=== PATIENT | female | born 1955 | race Caucasian/White ===

== ENCOUNTER → 2018-08-22 | Outpatient (CLI) | payer OTHER ==
--- NOTE | 2018-08-22 15:27 | RAD ---
Left lower extremity venous doppler ultrasound Indication: Left leg edema Technique: Color Doppler, grayscale, and spectral waveform analysis is used to evaluate the left femoral and popliteal veins. Findings: No evidence of deep venous thrombosis. Normal response to augmentation, normal compressibility and normal phasicity is demonstrated. Visualized calf veins are patent. Impression: Negative for deep venous thrombosis Electronically signed by: Alton Rojas MD (08/22/2018 3:24 PM) [id number]
== END | disposition home or self-care (01) ==
LOC: US 14:35 → MERGE 14:35
PROVIDERS: ATTEND Registered Nurse
DX: R60.0 Localized edema (principal); R20.2 Paresthesia of skin; R20.0 Anesthesia of skin
CPT/HCPCS: 93971

== ENCOUNTER → 2018-08-27 | Outpatient (CLI) | payer OTHER ==
[~2018-08-27] MED LIST: IOHEXOL 300 MG/ML 75 ML VIAL. IV ONE
--- NOTE | 2018-08-27 15:59 | RAD ---
PQRS Compliance statement: One or more of the following individualized dose reduction techniques were utilized for this examination: 1. Automated exposure control. 2. Adjustment of the mA and/or kV according to patient size. 3. Use of iterative reconstruction technique. Indication:Elevated d-dimer. Bilateral exiting. TECHNIQUE: CT angiogram of the chest with IV contrast with multiplanar MIP reformats. COMPARISON:None FINDINGS: Suboptimal PE study due to contrast bolus timing. No large saddle embolus. Evaluation of segmental and subsegmental pulmonary arteries is limited. Clear neck base. Heart is normal in size. No pericardial or pleural effusion. Coronary artery calcifications. No enlarged axillary, mediastinal or hilar adenopathy. Central airways are patent. Mild bibasilar subsegmental atelectasis. Visualized sections through the liver, spleen, adrenals, kidneys within normal limits. No suspicious bony lesion. IMPRESSION: Suboptimal PE study due to contrast bolus timing. No saddle embolus. Evaluation of segmental and subsegmental pulmonary arteries is limited. Consider further evaluation with DVT exam and VQ scan. Electronically signed by: Jose Alfredo Barrow DO (08/27/2018 3:57 PM) [facility]
== END | disposition home or self-care (01) ==
LOC: CT 14:01
PROVIDERS: ATTEND Family Medicine
DX: I25.10 Atherosclerotic heart disease of native coronary artery without angina pectoris (principal); J98.11 Atelectasis; Z91.030 Bee allergy status; Z87.891 Personal history of nicotine dependence
CPT/HCPCS: 71275; Q9967

== ENCOUNTER → 2018-10-16 | Outpatient (CLI) | payer OTHER ==
--- NOTE | 2018-10-16 10:44 | RAD ---
PQRS Compliance Statement: One or more of the following individualized dose reduction techniques were utilized for this examination: 1. Automated exposure control 2. Adjustment of the mA and/or kV according to patient size 3. Use of iterative reconstruction technique CT abdomen/pelvis without contrast 10/16/2018 10:30 AM INDICATION: Right flank pain for one week COMPARISON: CT abdomen/pelvis 04/30/2009 TECHNIQUE: Multiple axial CT images of the abdomen and pelvis were obtained without intravenous contrast. Coronal and sagittal reformats are provided. FINDINGS: There is bibasilar subsegmental atelectasis. Heart size is within normal limits. Evaluation of the solid abdominal viscera is limited by lack of intravenous contrast. There is diffuse hypoattenuation of the hepatic parenchyma suggestive of hepatic steatosis. Mild hepatomegaly. Spleen, bilateral adrenal glands and pancreas are normal in appearance. Gallbladder is surgically absent. Abdominal aorta is normal in course and caliber with moderate calcified atheromatous plaque. There are no pathologically enlarged lymph nodes in abdomen and pelvis. Surgical clips are noted within the pelvis. Tubal ligation clips are present. No free fluid or free intraperitoneal air. There is moderate colonic diverticulosis. No adjacent inflammatory changes identified. Small and large bowel are normal in caliber. There is no evidence for bowel obstruction. There are no pericolonic inflammatory changes. Appendix is not definitively visualized. No pericecal inflammatory changes are identified. The kidneys are relatively symmetric in appearance. There is no suspicious renal mass within the limitations of a noncontrast examination. There is no hydronephrosis. There are no calculi within the kidneys, ureters or urinary bladder. Urinary bladder is within normal limits given degree of distention. Uterus is normal. There is a tubal ligation clip identified within the rectouterine pouch. No suspicious osseous abnormality. Osseous hemangiomas are identified at L3 and L5. IMPRESSION: 1. No evidence for obstructive uropathy. No hydronephrosis or renal calculi. 2. Appendix is not definitively visualized. No pericecal inflammatory changes are present. No bowel obstruction or inflammation. 3. Moderate diverticulosis. 4. Moderate hepatic steatosis with hepatomegaly. Electronically signed by: Janette Baker MD (10/16/2018 10:41 AM) [facility]
== END | disposition home or self-care (01) ==
LOC: CT 10:06
PROVIDERS: ATTEND Registered Nurse
DX: K57.30 Diverticulosis of large intestine without perforation or abscess without bleeding (principal); K76.0 Fatty (change of) liver, not elsewhere classified; R16.0 Hepatomegaly, not elsewhere classified; D18.09 Hemangioma of other sites; J98.11 Atelectasis
CPT/HCPCS: 74176

== ENCOUNTER 2019-02-13 07:52 | Emergency (ER) | payer OTHER ==
[~2019-02-13] VITALS: Ht 162.6 cm; Wt 114.0 kg
[2019-02-13 08:59] LABS: BASO # 0.1 x10^3/uL (0.0-0.2); BASO % 1 % (0-3); EOS # 1.4 x10^3/uL (0.0-0.7); EOS % 9 % (0-3); HEMATOCRIT 49.5 % (36.0-47.0); HEMOGLOBIN 16.8 g/dL (12.0-15.5); LYMPH # 0.4 x10^3/uL (1.0-4.8); LYMPH % 2 % (24-48); MEAN CORPUSCULAR HEMOGLOBIN 31 pg (25-35); MEAN CORPUSCULAR HGB CONC 34 g/dL (31-37); MEAN CORPUSCULAR VOLUME 90 fL (79-100); MONO # 0.7 x10^3/uL (0.0-1.1); MONO % 4 % (0-9); NEUT # 13.9 x10^3uL (1.8-7.7); NEUT % 84 % (31-73); PLATELET COUNT 268 x10^3/uL (140-400); RED BLOOD COUNT 5.49 x10^6/uL (3.50-5.40); RED CELL DISTRIBUTION WIDTH 12.9 % (11.5-14.5); WHITE BLOOD COUNT 16.5 x10^3/uL (4.0-11.0)
[2019-02-13 09:09] LABS: CALCIUM 9.4 mg/dL (8.5-10.1); CREATININE 0.8 mg/dL (0.6-1.0); GFR 72.7; POTASSIUM 4.4 mmol/L (3.5-5.1)
[2019-02-13 09:16] LABS: ALBUMIN/GLOBULIN RATIO 1.1 (1.0-1.7); TOTAL BILIRUBIN 0.7 mg/dL (0.2-1.0); TOTAL PROTEIN 7.6 g/dL (6.4-8.2)
[2019-02-13 09:23] LABS: % BANDS 6 % (0-9); % EOS 3 % (0-5); % LYMPHS 3 % (24-48); % MONOS 6 % (0-10); % SEGS 82 % (35-66); PLT ESTIMATE ADEQUATE (ADEQUATE)
[2019-02-13] MEDS ORDERED: IV NORMAL SALINE 1,000ML 1,000 ML IV ONE ×2 (09:45→11:00)
[2019-02-13] MEDS ORDERED: ONDANSETRON PF 4 MG/2 ML VIAL. IVP ONE (09:45)
--- NOTE | 2019-02-13 09:52 | PHYS DOC ---
Past History Past Medical History: Endometriosis, Kidney Stones Past Surgical History: Appendectomy, Cholecystectomy, Tubal ligation, Other Additional Past Surgical Histo: kidney stone removed Alcohol Use: None Drug Use: None Adult General Chief Complaint Chief Complaint: ABDOMINAL PAIN HPI HPI Patient is a 63-year-old female who presents to ER today for evaluation of nausea, vomiting, diarrhea, epigastric abdominal pain since 12:30 AM this morning. Patient denies any fever. Patient says she was on antibiotics for upper respiratory infection 4 weeks ago. She IS not ON ANY BLOOD thinner, denies any blood in her stool, denies any history of coronary artery disease. Patient denies any headache. Patient denies any chest pain, no trouble breathing. aLL OTHER ros IS NEGATIVE UNLESS OTHERWISE NOTED IN hpi Review of Systems Review of Systems See above Current Medications Current Medications Current Medications Medications (Trade) Dose Ordered Sig/Alex Start Time Stop Time Status Last Admin Dose Admin Iohexol (Omnipaque 300 Mg/ml) 75 ml 1X ONCE 02/13/19 10:00 02/13/19 10:01 Metronidazole 100 ml @ 100 mls/hr 1X ONCE 02/13/19 10:00 02/13/19 10:59 Morphine Sulfate (Morphine 4mg Syringe) 4 mg 1X ONCE 02/13/19 10:00 02/13/19 10:01 Ondansetron HCl (Zofran) 8 mg 1X ONCE 02/13/19 09:45 02/13/19 09:46 DC Sodium Chloride 1,000 ml @ 1,000 mls/hr 1X ONCE 02/13/19 09:45 02/13/19 10:44 Allergies Allergies Allergies Coded Allergies Type Severity Reaction Last Updated Verified bee venom protein (honey bee) Allergy Unknown 02/13/19 Yes Physical Exam Physical Exam See above Constitutional: Well developed, well nourished, no acute distress, non-toxic appearance. [] HENT: Normocephalic, atraumatic, bilateral external ears normal, oropharynx moist, no oral exudates, nose normal. [] Eyes: PERRLA, EOMI, conjunctiva normal, no discharge. [] Neck: Normal range of motion, no tenderness, supple, no stridor. [] Cardiovascular:Heart rate regular rhythm, no murmur [] Lungs & Thorax: Bilateral breath sounds clear to auscultation [] Abdomen: Bowel sounds normal, soft, There is tenderness to palpation in epigastric area, no masses, no pulsatile masses. [] Skin: Warm, dry, no erythema, no rash. [] Back: No tenderness, no CVA tenderness. [] Extremities: No tenderness, no cyanosis, no clubbing, ROM intact, no edema. [] Neurologic: Alert and oriented X 3, normal motor function, normal sensory function, no focal deficits noted. [] Psychologic: Affect normal, judgement normal, mood normal. [] Current Patient Data Vital Signs Vital Signs Date Time Temp Pulse Resp B/P (MAP) Pulse Ox O2 Delivery O2 Flow Rate FiO2 02/13/19 07:52 98.9 105 20 92 Room Air Lab Results Laboratory Tests Test 02/13/19 08:45 White Blood Count 16.5 x10^3/uL (4.0-11.0) H Red Blood Count 5.49 x10^6/uL (3.50-5.40) H Hemoglobin 16.8 g/dL (12.0-15.5) H Hematocrit 49.5 % (36.0-47.0) H Mean Corpuscular Volume 90 fL (79-100) Mean Corpuscular Hemoglobin 31 pg (25-35) Mean Corpuscular Hemoglobin Concent 34 g/dL (31-37) Red Cell Distribution Width 12.9 % (11.5-14.5) Platelet Count 268 x10^3/uL (140-400) Neutrophils (%) (Auto) 84 % (31-73) H Lymphocytes (%) (Auto) 2 % (24-48) L Monocytes (%) (Auto) 4 % (0-9) Eosinophils (%) (Auto) 9 % (0-3) H Basophils (%) (Auto) 1 % (0-3) Neutrophils # (Auto) 13.9 x10^3uL (1.8-7.7) H Lymphocytes # (Auto) 0.4 x10^3/uL (1.0-4.8) L Monocytes # (Auto) 0.7 x10^3/uL (0.0-1.1) Eosinophils # (Auto) 1.4 x10^3/uL (0.0-0.7) H Basophils # (Auto) 0.1 x10^3/uL (0.0-0.2) Segmented Neutrophils % 82 % (35-66) H Band Neutrophils % 6 % (0-9) Lymphocytes % 3 % (24-48) L Monocytes % 6 % (0-10) Eosinophils % 3 % (0-5) Platelet Estimate Adequate (ADEQUATE) Large Platelets Occ Sodium Level 139 mmol/L (136-145) Potassium Level 4.4 mmol/L (3.5-5.1) Chloride Level 103 mmol/L (98-107) Carbon Dioxide Level 25 mmol/L (21-32) Anion Gap 11 (6-14) Blood Urea Nitrogen 19 mg/dL (7-20) Creatinine 0.8 mg/dL (0.6-1.0) Estimated GFR (Cockcroft-Gault) 72.7 BUN/Creatinine Ratio 24 (6-20) H Glucose Level 166 mg/dL (70-99) H Calcium Level 9.4 mg/dL (8.5-10.1) Total Bilirubin 0.7 mg/dL (0.2-1.0) Aspartate Amino Transferase (AST) 38 U/L (15-37) H Alanine Aminotransferase (ALT) 81 U/L (14-59) H Alkaline Phosphatase 103 U/L (46-116) Total Protein 7.6 g/dL (6.4-8.2) Albumin 4.0 g/dL (3.4-5.0) Albumin/Globulin Ratio 1.1 (1.0-1.7) Lipase 176 U/L (73-393) EKG EKG [] Radiology/Procedures Radiology/Procedures [][address] [address] IMAGING REPORT Signed PATIENT: TASHA WEAVER LACCOUNT: [id number] : 1955 LOCATION: ER AGE: 63 SEX: F EXAM STATUS: REG ER ORD. PHYSICIAN: KRISS GLOVER DO REASON: abdominal pain, nausea, vomiting PROCEDURE: CT ABD PELV W/ IV CONTRST ONLY Examination: CT of the abdomen pelvis with IV contrast HISTORY: History of abdominal pain, nausea, vomiting COMPARISON: None available TECHNIQUE: Axial CT images of the abdomen pelvis were performed with IV contrast. Coronal and sagittal reformats are performed. Exposure: One or more of the following individualized dose reduction techniques were utilized for this examination: 1. Automated exposure control 2. Adjustment of the mA and/or kV according to patient size 3. Use of iterative reconstruction technique FINDINGS: Minimal bibasilar lung atelectasis. There is a 6 mm nodule identified in the left lower lobe of the lung. No evidence of free air identified in the abdomen. Diffuse decreased attenuation noted in the liver likely hepatic steatosis. Hepatomegaly. The spleen, adrenals grossly appears unremarkable. Cholecystectomy clips identified. The stomach is mildly distended. The visualized pancreas grossly appears unremarkable. Small bowel is nondilated. Multiple sigmoid colon diverticulosis identified. Liquid stool identified in the colon. The bilateral kidneys enhance symmetrically. Moderate aortic atherosclerosis. Urinary bladder is mildly distended Moderate degenerative changes lumbar spine. IMPRESSION: 1. Liquid stool identified in the colon likely diarrhea. 2. Sigmoid colon diverticulosis. 3. Hepatomegaly with hepatic steatosis. 4. A 6 mm nodule identified in the left lower lobe of the lung, follow-up per Fleischner Society guidelines follow-up CT in 6-12 months. Electronically signed by: Thierry Lala MD (02/13/2019 10:29 AM) [facility] DICTATED AND SIGNED BY: THIERRY LALA MD DATE: 02/13/19 1029 CC: KRISS GLOVER DO; KIANA JOSÉ MD ~ Course & Med Decision Making Course & Med Decision Making Pertinent Labs and Imaging studies reviewed. (See chart for details) [] Dragon Disclaimer Dragon Disclaimer This electronic medical record was generated, in whole or in part, using a voice recognition dictation system. Departure Departure: Impression: Primary Impression: Gastroenteritis Disposition: HOME, SELF-CARE Condition: STABLE Referrals: KIANA JOSÉ MD (PCP) FOLLOW UP WITH YOUR DOCTOR ON SUNDAY FOR REEVALUATION Patient Instructions: Viral Gastroenteritis Scripts Ondansetron Hcl (ZOFRAN) 8 Mg Tablet 1 TAB PO Q8HRS PRN for NAUSEA, #15 TAB 1 Refill Prov: KRISS GLOVER DO 02/13/19 Metronidazole (FLAGYL) 500 Mg Tablet 1 TAB PO TID for DIARRHEA for 7 Days, #21 TAB Prov: KRISS GLOVER DO 02/13/19 KRISS GLOVER DO Feb 13, 2019 09:52
[2019-02-13] MEDS ORDERED: IOHEXOL 300 MG/ML 75 ML VIAL. IV ONE (10:00)
[2019-02-13] MEDS ORDERED: MORPHINE SULFATE 4 MG/ML DISP.SYRIN. IV ONE (10:00)
--- NOTE | 2019-02-13 10:31 | RAD ---
Examination: CT of the abdomen pelvis with IV contrast HISTORY: History of abdominal pain, nausea, vomiting COMPARISON: None available TECHNIQUE: Axial CT images of the abdomen pelvis were performed with IV contrast. Coronal and sagittal reformats are performed. Exposure: One or more of the following individualized dose reduction techniques were utilized for this examination: 1. Automated exposure control 2. Adjustment of the mA and/or kV according to patient size 3. Use of iterative reconstruction technique FINDINGS: Minimal bibasilar lung atelectasis. There is a 6 mm nodule identified in the left lower lobe of the lung. No evidence of free air identified in the abdomen. Diffuse decreased attenuation noted in the liver likely hepatic steatosis. Hepatomegaly. The spleen, adrenals grossly appears unremarkable. Cholecystectomy clips identified. The stomach is mildly distended. The visualized pancreas grossly appears unremarkable. Small bowel is nondilated. Multiple sigmoid colon diverticulosis identified. Liquid stool identified in the colon. The bilateral kidneys enhance symmetrically. Moderate aortic atherosclerosis. Urinary bladder is mildly distended Moderate degenerative changes lumbar spine. IMPRESSION: 1. Liquid stool identified in the colon likely diarrhea. 2. Sigmoid colon diverticulosis. 3. Hepatomegaly with hepatic steatosis. 4. A 6 mm nodule identified in the left lower lobe of the lung, follow-up per Fleischner Society guidelines follow-up CT in 6-12 months. Electronically signed by: Thierry Lala MD (02/13/2019 10:29 AM) [facility]
[2019-02-13] MEDS ORDERED: ONDA8TAB9 PO (12:26)
[2019-02-13] MEDS ORDERED: METR500T PO (12:26)
[2019-02-13 13:30] VITALS: BP 120/61
== END 2019-02-13 13:30 | disposition home or self-care (01) ==
LOC: ER 07:52
DX: K52.9 Noninfective gastroenteritis and colitis, unspecified (principal); Z87.442 Personal history of urinary calculi; Z90.49 Acquired absence of other specified parts of digestive tract; Z90.89 Acquired absence of other organs; Z91.030 Bee allergy status
CPT/HCPCS: 36415; 74177; 80053; 83690; 85007; 85025; 87493; 96365; 96375; 99285; J2270; J2405; J3490; Q9967; J7030

== ENCOUNTER → 2019-12-08 | Outpatient (CLI) | payer OTHER ==
[~2019-12-08] MED LIST changes: -IOHEXOL 300 MG/ML 75 ML VIAL. IV ONE; +METR500T PO; +ONDA8TAB9 PO
--- NOTE | 2019-12-08 15:11 | RAD ---
KNEE RIGHT 2V, KNEE STANDING BILAT AP DATE: 12/08/2019 2:17 PM INDICATION: KNEE PAIN COMPARISON: None. FINDINGS: Right: No acute osseous abnormality. Moderate to severe medial compartment joint space narrowing, mild lateral and patellofemoral compartment. No knee joint effusion. Left, AP view only: No acute osseous abnormality. Moderate medial compartment joint space narrowing, mild lateral compartment. IMPRESSION: Moderate to severe degenerative changes in the medial compartment of the right knee. Electronically signed by: Yanick López MD (12/08/2019 3:07 PM) [id number]
== END ==
LOC: RAD 14:05
PROVIDERS: ATTEND Physician Assistant
DX: M17.11 Unilateral primary osteoarthritis, right knee (principal)
CPT/HCPCS: 73560; 73565

== ENCOUNTER → 2020-08-10 | Outpatient (CLI) | payer OTHER ==
--- NOTE | 2020-08-10 16:16 | RAD ---
XR EXAM OF ANKLE_RIGHT 2 VIEWS History: Reason: LATERAL RIGHT ANKLE PUNCTURE WOUND. / Spl. Instructions: / History: Technique: 2 views right ankle Comparison: None. Findings: Normal alignment. Symmetric ankle mortise. No radiopaque foreign body. Impression: 1. No acute osseous abnormality. No radiopaque foreign body. Electronically signed by: Graham Hernandez DO (08/10/2020 4:13 PM) [facility]
== END ==
LOC: RAD 15:46
PROVIDERS: ATTEND Nurse Practitioner Family
DX: S91.031A Puncture wound without foreign body, right ankle, initial encounter (principal); X58.XXXA Exposure to other specified factors, initial encounter; Y93.89 Activity, other specified; Y92.89 Other specified places as the place of occurrence of the external cause; Y99.8 Other external cause status
CPT/HCPCS: 73600

== ENCOUNTER → 2021-05-05 | Outpatient (CLI) | payer MEDICARE, OTHER ==
--- NOTE | 2021-05-05 12:38 | RAD ---
EXAMINATION: XR CHEST 2V CLINICAL HISTORY: Preoperative clearance. EXAM DATE/TIME: 05/05/2021 12:05 PM COMPARISON: None FINDINGS: Lines, Tubes, and Devices: None. Cardiomediastinal Silhouette: Normal heart size. Aortic atherosclerotic calcification. Lungs and Pleura: No evidence of focal airspace consolidation or pleural effusion. Minimal curvilinea r bibasilar subsegmental atelectasis and/or scarring. Pulmonary vasculature unremarkable. Bones and Soft Tissues: Degenerative changes in the thoracic spine. IMPRESSION: No evidence of acute cardiopulmonary abnormality. Electronically signed by: Kenn Mckoy DO (05/05/2021 12:36 PM) [id number]
== END ==
LOC: RAD 11:50
PROVIDERS: ATTEND Family Medicine
DX: Z01.818 Encounter for other preprocedural examination (principal); M47.814 Spondylosis without myelopathy or radiculopathy, thoracic region; I70.0 Atherosclerosis of aorta
CPT/HCPCS: 71046

== ENCOUNTER → 2021-05-17 | Outpatient (CLI) | payer MEDICARE, OTHER ==
--- NOTE | 2021-05-17 13:17 | CARD ---
MR#: [id number] Date of Study: 05/17/2021 Ordering Physician: KIANA JOSÉ, Referring Physician: KIANA JOSÉ Tech: Madan Simmons [facility] APPROVED REPORT EXAM: Two-dimensional and M-mode echocardiogram with Doppler and color Doppler. Other Information Quality : AverageHR: 73bpm Rhythm : NSR INDICATION Pre-Op RISK FACTORS Hypertension Obesity 2D DIMENSIONS Left Atrium(2D)3.8 (1.6-4.0cm)IVSd1.1 (0.7-1.1cm) Aortic Root(2D)3.3 (2.0-3.7cm)LVDd4.1 (3.9-5.9cm) LVOT Diameter2.1 (1.8-2.4cm)PWd1.1 (0.7-1.1cm) LA Btceuk97 (18-58mL)LVDs2.3 (2.5-4.0cm) FS (%) 44.6 %SV56.1 ml LVEF(%)76.3 (>50%) Aortic Valve AoV Peak Meir.143.4cm/sAoV VTI27.5cm AO Peak GR.8.2mmHgLVOT Peak Meir.104.6cm/s LVOT VTI 21.84cmAO Mean GR.5mmHg PRANEETH (VMAX)2.53un2TKV (VTI)2.81cm2 Mitral Valve MV E Tzwhhegt38.0cm/sMV DECEL [id number] MV A Eatccexf87.1cm/sE/A Ratio0.9 Pulmonary Valve PV Peak Tkilblpd034.7cm/sPV Peak Grad.4mmHg Tricuspid Valve TR P. Burcaghp604wl/sTR Peak Gr.25mmHg Pulmonary Vein S1 Ejkqgqfz70.6cm/sD2 Ywxxdfqu32.6cm/s LEFT VENTRICLE The left ventricle is normal size. There is normal left ventricular wall thickness. The left ventricu lar systolic function is normal. The ejection fraction is 65%. There is normal LV segmental wall andres on. Transmitral Doppler flow pattern is Grade I-abnormal relaxation pattern. No left ventricle thromb us noted on this study. There is no ventricular septal defect visualized. There is no left ventricula r aneurysm. There is no mass noted in the left ventricle. RIGHT VENTRICLE The right ventricle is normal size. There is normal right ventricular wall thickness. The right ventr icular systolic function is normal. ATRIA The left atrium size is normal. The right atrium size is normal. The interatrial septum is intact wit h no evidence for an atrial septal defect or patent foramen ovale as noted on 2-D or Doppler imaging. AORTIC VALVE The aortic valve is normal in structure and function. Doppler and Color Flow revealed no significant aortic regurgitation. There is no significant aortic valvular stenosis. There is no aortic valvular v egetation. MITRAL VALVE The mitral valve is normal in structure and function. There is no evidence of mitral valve prolapse. There is no mitral valve stenosis. Doppler and Color-flow revealed trace mitral regurgitation. TRICUSPID VALVE The tricuspid valve is normal in structure and function. Doppler and Color Flow revealed trace tricus pid regurgitation. The PA pressure was estimated at 30 mmHg. There is no tricuspid valve prolapse or vegetation. There is no tricuspid valve stenosis. PULMONIC VALVE The pulmonary valve is normal in structure and function. Doppler and Color Flow revealed no pulmonic valvular regurgitation. There is no pulmonic valvular stenosis. GREAT VESSELS The aortic root is normal in size. The ascending aorta is normal in size. The pulmonary artery is nor mal. The IVC is normal in size and collapses >50% with inspiration. PERICARDIAL EFFUSION There is no pleural effusion. There is no evidence of significant pericardial effusion. Critical Notification Critical Value: No <Conclusion> The left ventricular systolic function is normal. The ejection fraction is 65%. There is normal LV segmental wall motion. Transmitral Doppler flow pattern is Grade I-abnormal relaxation pattern. Trace mitral regurgitation. Trace tricuspid regurgitation. The PA pressure was estimated at 30 mmHg. There is no evidence of significant pericardial effusion. Signed by : Raghu Simms, Electronically Approved : 05/17/2021 13:16:54
== END ==
LOC: CARD 07:48
PROVIDERS: ATTEND Family Medicine
DX: Z01.818 Encounter for other preprocedural examination (principal)
CPT/HCPCS: 93306